=== PATIENT | male | born 1995 | race Caucasian/White ===

== ENCOUNTER 2016-06-28 10:50 | Emergency (ER) | payer OTHER ==
[~2016-06-28] VITALS: Ht 182.9 cm; Wt 77.0 kg
[2016-06-28] MEDS ORDERED: PERTUSS(ACELL),DIPH,TET VAC/PF 0.5 ML VIAL IM ONE (12:00)
[2016-06-28] MEDS ORDERED: LIDOCAINE HCL BUFFERED 1% 20 ML VIAL INJ ONE (12:15)
[2016-06-28 13:14] VITALS: BP 124/75
[2016-06-28] MEDS ORDERED: BACITRACIN 0.9 GM PACKET OINTMENT TP ONE (13:15)
== END 2016-06-28 13:25 | disposition home or self-care (01) ==
LOC: EMS 10:51
DX: S51.812A Laceration without foreign body of left forearm, initial encounter (principal); W45.8XXA Other foreign body or object entering through skin, initial encounter; Y93.89 Activity, other specified; Y92.89 Other specified places as the place of occurrence of the external cause; Y99.8 Other external cause status
CPT/HCPCS: 12002; 90471; 90715; 99283; J3490